=== PATIENT | male | born 1960 | race Caucasian/White ===

== ENCOUNTER 2020-03-29 12:05 | Inpatient (IN) ==
[~2020-03-29 12:05] MED LIST: Vancomycin 2,000 MG/520 ML IV.SOLN IVPB ONE
[2020-03-29] MEDS ORDERED: Ringers Solution, Lactated 1,000 ML IVC SCH (12:45)
[2020-03-29] MEDS ORDERED: *HR* HYDROcodone/Acet 5/325 mg TABLET PO PRN ×2 (13:27→18:58)
[2020-03-29] MEDS ORDERED: Ondansetron 4 MG/2 ML VIAL IVP ONE (13:27)
[2020-03-29] MEDS ORDERED: Ondansetron 4 MG/2 ML VIAL ONE (13:50)
[2020-03-29] MEDS ORDERED: *HR* Succinylcholine 200 MG/10 ML VIAL IVP ONE (13:50)
[2020-03-29] MEDS ORDERED: Lidocaine -MPF 2% 2 ML VIAL ONE ×2 (13:50)
[2020-03-29] MEDS ORDERED: Dexamethasone 4 MG/ML VIAL ONE (13:50)
[2020-03-29] MEDS ORDERED: *HR* Propofol 200 MG/20 ML VIAL IVP ONE ×2 (13:55→15:11)
[2020-03-29] MEDS ORDERED: Ropivacaine/PF 0.5% 30 ML VIAL ONE (14:06)
[2020-03-29] MEDS ORDERED: *HR* Midazolam HCl 2 MG/2 ML VIAL ONE (14:06)
[2020-03-29] MEDS ORDERED: *HR* FentaNYL (PF) 100 MCG/2 ML VIAL ONE ×2 (14:06→15:09)
[2020-03-29] MEDS ORDERED: ROPIVACAINE/PF/NS 0.25% 1 EACH SYRINGE INTRAART ONE (14:07)
[2020-03-29] MEDS ORDERED: Ethanol\\Acetic Acid\\Na Ace\\Ben 1,000 ML IRRIG.SOLN IR ONE (14:20)
[2020-03-29] MEDS ORDERED: Vancomycin 1,000 MG VIAL ONE (14:20)
[2020-03-29] MEDS ORDERED: *HR* HYDROMORPHONE 2 MG/ML VIAL ONE (15:12)
[2020-03-29] MEDS ORDERED: EPHEDrine 50 MG/ML VIAL ONE (15:20)
[2020-03-29] MEDS ORDERED: *HR* PHENYLEPHRINE 1,000 MCG/10 ML SYRINGE IVP ONE (15:24)
[2020-03-29] MEDS: *HR* HYDROmorphone PF 0.5 MG/0.5 ML SYRINGE IVP PRN ×4 (16:20→17:10)
[2020-03-29] MEDS ORDERED: *HR* HYDROcodone/Acet 10/325 mg TABLET PO PRN (18:58)
[2020-03-29] MEDS ORDERED: D5% in Water 1,000 ML IVC PRN (18:58)
[2020-03-29] MEDS ORDERED: Sennosides 8.6 MG TABLET PO PRN (18:58)
[2020-03-29] MEDS ORDERED: Dextrose Gel 15 GM/37.5 ML TUBE PO PRN ×2 (18:58)
[2020-03-29] MEDS ORDERED: Naloxone 0.4 MG/ML INJ IVP PRN (18:58)
[2020-03-29] MEDS ORDERED: MOM Conc 10 ML UD.LIQ PO PRN (18:58)
[2020-03-29] MEDS ORDERED: *HR* Dextrose 50 % in Water (Vial) 50 ML VIAL IVP PRN (18:58)
[2020-03-29] MEDS: Ondansetron 4 MG/2 ML VIAL IVP PRN (19:04)
[2020-03-29 19:34] LABS: Hematocrit 43.6 % (37.5-50.1)
[2020-03-29] MEDS: Insulin LISPRO 300 UNITS/3 ML VIAL SQ SCH ×2 (20:52→22:18)
[2020-03-29] MEDS: Gabapentin 300 MG CAPSULE PO SCH (21:01)
[2020-03-29] MEDS: Ringers Solution, Lactated 1,000 ML IVC SCH (22:17)
[2020-03-30] MEDS ORDERED: Vancomycin 2,000 MG/520 ML IV.SOLN IVPB ONE (01:00)
[2020-03-30 06:38] LABS: Hematocrit 39.7 % (37.5-50.1); Hemoglobin 12.7 g/dL (12.9-16.9)
[2020-03-30 07:00] LABS: BUN/Creatinine Ratio 14 (6-26); Blood Urea Nitrogen 18 mg/dL (6-20); Calcium 8.3 mg/dL (8.6-10.3); Carbon Dioxide 22 mEq/L (23-29); Chloride 105 mEq/L (98-107); Glucose 196 mg/dL (70-105); Osmolality,Calculated 289 (280-300); Potassium 4.8 mEq/L (3.5-5.1); Sodium 136 mEq/L (136-145); eGFR For African Americans > 60 (> 60); eGFR For Non-African Americans 58 (> 60)
[2020-03-30] MEDS: Insulin LISPRO 300 UNITS/3 ML VIAL SQ SCH ×4 (07:49→21:40)
[2020-03-30] MEDS: lisinopriL 5 MG TABLET PO SCH (10:06)
[2020-03-30] MEDS: *HR* Rivaroxaban 10 MG TABLET PO SCH (10:06)
[2020-03-30] MEDS: *HR* OxyCODONE Immed Rel 5 MG TABLET PO PRN (18:55)
[2020-03-30] MEDS: Gabapentin 300 MG CAPSULE PO SCH (21:50)
[2020-03-30] MEDS: Ringers Solution, Lactated 1,000 ML IVC SCH (21:50)
[2020-03-31] MEDS: *HR* OxyCODONE Immed Rel 5 MG TABLET PO PRN ×2 (01:17→07:51)
[2020-03-31 05:24] LABS: Hematocrit 43.7 % (37.5-50.1); Hemoglobin 13.5 g/dL (12.9-16.9)
[2020-03-31 05:47] LABS: BUN/Creatinine Ratio 14 (6-26); Blood Urea Nitrogen 19 mg/dL (6-20); Calcium 8.3 mg/dL (8.6-10.3); Carbon Dioxide 24 mEq/L (23-29); Chloride 106 mEq/L (98-107); Glucose 97 mg/dL (70-105); Osmolality,Calculated 288 (280-300); Sodium 138 mEq/L (136-145); eGFR For African Americans > 60 (> 60); eGFR For Non-African Americans 55 (> 60)
[2020-03-31] MEDS: Insulin LISPRO 300 UNITS/3 ML VIAL SQ SCH ×2 (07:47→12:46)
[2020-03-31] MEDS: *HR* Rivaroxaban 10 MG TABLET PO SCH (07:51)
[2020-03-31] MEDS: lisinopriL 5 MG TABLET PO SCH (07:51)
[2020-03-31] MEDS: Ringers Solution, Lactated 1,000 ML IVC SCH (07:56)
[2020-03-31] MEDS: Ondansetron 4 MG/2 ML VIAL IVP PRN (09:55)
[2020-03-31 10:43] VITALS: BP 145/87
== END 2020-03-31 13:40 | disposition home or self-care (01) | DRG 483 ==
LOC: SAMDAY 12:05 → 3NENU 18:32
PROVIDERS: ADMIT Orthopaedic Surgery; ATTEND Orthopaedic Surgery